=== PATIENT | male | born 1990 | race Caucasian/White ===

== ENCOUNTER 2021-07-15 00:48 | Day surgery (SDC) | payer BC, SELFPAY ==
[2021-07-08 13:39] VITALS: BMI 24.5
[2021-07-15 12:30] VITALS: BP 125/73; PULSE 104; RESP 18; TEMP 37.4; O2SAT 100
[2021-07-15] MEDS: LACTATED RINGERS 1,000 ML 150 ML IV CONT (12:38)
--- NOTE | 2021-07-15 12:49 | WPDANESEPPF ---
Anes - Initial Pre Proc Eval Procedure: Operation Date: 07/15/21 13:30 Proposed Procedures p Colonoscopy - Conrad Mccray MD Date/Time: 07/15/21 12:49 Surgeon: Conrad Mccray MD Pre Op Diagnosis: melena Patient Data Age: 30 Gender: M Height: 1.83 m Weight: 80.7 kg Last Vital Signs Temp 99.4 F 07/15/21 12:30 Pulse 104 H 07/15/21 12:30 Resp 18 07/15/21 12:30 BP 125/73 07/15/21 12:30 Pulse Ox 100 07/15/21 12:30 Allergies Allergy/AdvReac Type Severity Reaction Status Date / Time No Known Allergies Allergy Verified 07/15/21 12:29 Home Medications Medication Instructions Recorded Confirmed Type Saccharomyces boulardii 250 mg 250 mg PO BID 05/30/21 07/08/21 History capsule omega 4-gan-jba-fish oil 60 mg-90 1 cap PO DAILY 05/30/21 07/08/21 History mg-500 mg capsule Patient hx anesthesia problems: none Family hx anesthesia problems: none Results Review: All pre-operative results and documents have been reviewed as part of the pre-operative evaluation. 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 Gender identity (if verbalized by the patient): Male Sexual Orientation (if Verbalized by the Patient): Straight or Heterosexual Spiritual care concerns: No Agree to blood products: Yes Anes - Eval Final PreProcedure Day of Procedure 07/15/21 12:49 Patient weight: normal Heart: regular rate and rhythm Lungs: clear to auscultation Airway: Mallampati scale class II Neurological: alert and oriented Last oral intake: >/= 8 hours ASA classification: II Emergent: no Anesthetic plan: proceed Anesthesia type and monitoring: general GIVS and standard monitoring Results Review: All pre-operative results and documents have been reviewed as part of the pre-operative evaluation. Informed Consent: The patient's anesthetic plan and its attendant risks and benefits were discussed with the patient/family/POA. Questions were solicited and answers provided to the satisfaction of the patient/family/POA.
--- NOTE | 2021-07-15 12:56 | PM.HPGS ---
History of Present Illness History of Present Illness Consent: Risks, benefits, and alternatives have been discussed and questions answered. Patient agrees to proceed with procedure. Chief complaint: melena Narrative: Josh Dow is a 30 year old male here for intermittent blood in stools, never had colonoscopy. Also aunt and uncle had colon cancer. Review of Systems Constitutional: Constitutional: Denies headache(s) and Denies weakness Eyes: Eyes: Denies blurry vision ENT: Reports Normal hearing present, Denies headache(s) and Denies neck pain Cardiovascular: Cardiovascular: Denies chest pain and Denies dyspnea Respiratory: Respiratory: Denies dyspnea Gastrointestinal: Gastrointestinal: Reports no additional gastrointestinal complaints Genitourinary: Genitourinary: Denies dysuria Musculoskeletal: Musculoskeletal: Denies neck pain Integumentary/Breasts: Skin/Breast: Denies dry skin Neurologic: Reports Normal hearing present, Denies headache(s) and Denies weakness Psychiatric: Psychiatric: Denies anxiety Endocrine: Endocrine: Denies change in body appearance Hematologic/Lymphatic: Hematologic/Lymphatic: Denies easy bleeding Allergic/Immunologic: Allergic/Immunologic: Denies urticaria [facility], [facility] Past Medical History Medical History (Updated 07/15/21 @ 12:57 by Conrad Mccray MD) Anxiety Family history of colon cancer Palpitations Family History Family History Mother Depression Hypothyroid Bladder ulcer Sibling Testicle cancer Social History Social History Smoking status: Never smoker Alcohol intake: current Drinks per week: 4 Substance use: never Substance use type: does not use Living arrangements: with family 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 Gender identity (if verbalized by the patient): Male Sexual Orientation (if Verbalized by the Patient): Straight or Heterosexual Spiritual care concerns: No Agree to blood products: Yes Meds Home Medications and Allergies Home Medications Medication Instructions Recorded Confirmed Type Saccharomyces boulardii 250 mg 250 mg PO BID 05/30/21 07/08/21 History capsule omega 8-gxn-caf-fish oil 60 mg-90 1 cap PO DAILY 05/30/21 07/08/21 History mg-500 mg capsule Allergies Allergy/AdvReac Type Severity Reaction Status Date / Time No Known Allergies Allergy Verified 02/21/22 12:29 Vital Signs Vital Signs - 24 hr 07/15/21 12:30 Temperature 99.4 F Pulse Rate 104 H Respiratory Rate 18 Blood Pressure 125/73 Pulse Oximetry 100 Exam Const: General: comfortable and no acute distress HENMT: General nose exam: Normal nares present Eyes: General: appearance normal, both eyes and all related structures Neck: Neck: no JVD Resp: Auscultation: clear to auscultation bilaterally Cardio: Rate: regular rate Rhythm: regular rhythm GI: Inspection: non-distended GI Palp: Yes Soft to palpation Skin: General skin exam: normal color Neuro: General: gait normal Speech: normal speech Extrem: General: normal to inspection Psych: Mental Status: mental status grossly normal Assessment and Plan Assessment and plan (1) Bloody stool: Code(s): K92.1 - Melena Status: Acute Assessment and Plan: will check with colonoscopy, probably perianal (2) Family history of colon cancer: Code(s): Z80.0 - Family history of malignant neoplasm of digestive organs Status: Acute
[2021-07-15 13:12] VITALS: BP 91/64; PULSE 89; RESP 24; O2SAT 99
[2021-07-15 13:22] VITALS: BP 95/55; PULSE 99; RESP 22; O2SAT 99
[2021-07-15 13:32] VITALS: BP 106/62; PULSE 100; RESP 22; O2SAT 100
== END 2021-07-15 13:45 | disposition home or self-care (01) ==
PROVIDERS: PCP Family Medicine; Visit Provider Internal Medicine Gastroenterology
PROC: 0DJD8ZZ Inspection of Lower Intestinal Tract, Via Natural or Artificial Opening Endoscopic (ICD-10-PCS; CPT 45378; principal; 2021-07-15 13:30)
DX: K92.1 Melena (principal); K64.8 Other hemorrhoids; Z80.0 Family history of malignant neoplasm of digestive organs
CPT/HCPCS: 45378; J2704; J7120